=== PATIENT | male | born 1945 ===

== ENCOUNTER 2025-04-09 05:10 | Day surgery (SDC) | payer OTHER ==
[2025-04-02 08:33] VITALS: BP 170/77
[2025-04-02 09:03] LABS: URINE APPEARANCE Clear; URINE BILIRRUBIN Negative (NEGATIVE); URINE BLOOD Small; URINE COLOR Yellow; URINE GLUCOSE Negative (NEGATIVE); URINE KETONE 15 (NEGATIVE); URINE LEUKOCYTE Small; URINE NITRATE Negative; URINE PROTEIN Negative (NEGATIVE); URINE UROBILINOGEN 0.2 E.U./dl
[2025-04-02 09:08] LABS: BASO % 1.1 % (0.1-1.2); EOS # 0.47 (0.04-0.54); EOS % 6.4 % (0.7-7.0); LYMPH # 1.99 (1.18-3.74); LYMPH % 26.9 % (19.3-53.1); MEAN PLATELET VOLUME 12.20 fl (9.4-12.4); MONO # 0.50 (0.24-0.82); MONO % 6.8 % (4.7-12.5); NEUT # 4.34 (1.56-6.13); NEUT % 58.5 % (34.0-71.1); RED CELL DISTRIBUTION WIDTH 13.1 % (11.6-14.4); URINE BACTERIA 9162.6 uL (0.0-1933); URINE EPITHELIAL CELLS 1.9 uL (0.0-38.8); URINE RBC 29.1 uL (0.0-20.8); URINE WBC 83.0 uL (0.0-23.2)
[2025-04-02 09:12] LABS: INR 0.95
[2025-04-02 09:17] LABS: ALT/SGPT 21.0 U/L (12-78); AST/SGOT 23.0 U/L (15-37); BILIRUBIN TOTAL 0.44 mg/dL (0.3-1.2); BUN CREA RATIO 14.0 (7.0-25.0); CREATININE SERUM 0.84 mg/dL (0.70-1.30); GFR 87.92; GLOBULINA 4.5 G/DL (2.4-3.5); GLUCOSE FASTING 90.0 mg/dL (65-100); OSMOLALITY SERUM 281.0 MOSM/KG (275-295)
[2025-04-02 09:20] LABS: URINE CAST 0.43 uL (0.0-1.40)
[2025-04-02 09:33] LABS: COVID-19 AG NEGATIVE (NEGATIVE)
[~2025-04-09] VITALS: Ht 165.1 cm; Wt 61.7 kg
[~2025-04-09 05:10] MED LIST: ATIVAN0.5 M1; COZAAR25 MG; SIMVASTATIN5 MG
[2025-04-09] MEDS ORDERED: POVIDONE-IODINE SCRUB 118 ML BOTT TOP ONE (10:00)
[2025-04-09] MEDS ORDERED: CEFAZOLIN SODIUM 1,000 MG VIAL IV SCH (10:00)
[2025-04-09] MEDS ORDERED: LIDOCAINE HCL 1%/EPINEPHRINE 20ML VIAL IJ ONE (10:00)
[2025-04-09] MEDS ORDERED: CIPROFLOXACIN HCL 0.175 MG/DR DROPS OP ONE (10:00)
[2025-04-09] MEDS ORDERED: EPINEPHRINE HCL/PF 1 MG/ML AMPUL IR ONE (10:00)
[2025-04-09] MEDS ORDERED: POVIDONE-IODINE 118 ML BOTT TOP ONE (10:00)
[2025-04-09] MEDS ORDERED: BUPIVACAINE HCL 30 ML VIAL IJ ONE (10:00)
[2025-04-09] MEDS ORDERED: SUGAMMADEX SODIUM 200 MG/2 ML VIAL IV ONE (12:15)
[2025-04-09] MEDS ORDERED: KETOROLAC TROMETHAMINE 60 MG VIAL IM PRN (12:15)
[2025-04-09] MEDS ORDERED: PROMETHAZINE HCL 25 MG/ML AMPUL IM PRN (12:30)
== END 2025-04-09 16:00 | disposition home or self-care (01) ==
LOC: CIR.AMB 05:10
PROVIDERS: ATTEND Otolaryngology Otology & Neurotology
DX: H66.92 Otitis media, unspecified, left ear (principal); H71.22 Cholesteatoma of mastoid, left ear